=== PATIENT | female | born 1960 | race Caucasian/White ===

== ENCOUNTER 2016-03-31 11:59 | Emergency (ER) | payer MEDICARE ==
[2014-05-03 02:58] VITALS: BMI 31.0
[~2016-03-31 11:59] MED LIST: AMBIEN10 MG PO; AMITRIPTYLINE100 MG PO; ATIVAN1 MG PO; DUTOPROL 25-121 EACH PO; EFFEXOR XR150 MG PO; FOLIC ACID1 MG PO; HYDROCODONE-APA1 TAB PO; IPRAT-ALBUT 0.5-3 ML UPD; KLOR-CON M2020 MEQ PO; LEVAQUIN 5500 MG/100 PO; NYSTATIN ORAL SU5 ML PO; PRILOSEC20 MG PO; PROMETHAZINE W473 M1 PO; SOMA350 MG PO; VITAMIN D31000 UNI2 PO
[2016-03-31 14:42] LABS: HEMATOCRIT 48.2 % (36.0-48.0); HEMOGLOBIN 16.3 g/dL (12-16); MCH 30.1 pg (26.0-34.0); MCHC 33.8 g/dL (31.0-37.0); MCV 89.1 fL (80.0-100.0); MEAN PLATELET VOLUME 9.6 fL (7.4-10.4); PLATELET COUNT 344 10x3/uL (130-400); RBC 5.41 10x6/uL (4.00-5.40)
[2016-03-31 15:11] LABS: ANION GAP 15.8 mmol/L (8-16); BILIRUBIN - TOTAL 0.35 mg/dL (0.2-1.3); CREATININE - SERUM 0.9 mg/dL (0.6-1.3); POTASSIUM - SERUM 3.8 mmol/L (3.5-5.1); PROTEIN - SERUM 7.8 g/dL (6.4-8.2)
[2016-03-31 15:28] LABS: EOSINOPHILS 5 % (0-7); LYMPHOCYTES 29 % (15-50); NEUTROPHILS 66 % (40-80); PLATELET ESTIMATE NORMAL
[2016-03-31 20:31] LABS: BASOPHILS 0.3 % (0.0-2.0); EOSINOPHILS 2.8 % (0-7); HEMATOCRIT 44.8 % (36.0-48.0); HEMOGLOBIN 15.4 g/dL (12-16); LYMPHOCYTES 33.8 % (15-50); MCH 30.3 pg (26.0-34.0); MCHC 34.4 g/dL (31.0-37.0); MCV 88.2 fL (80.0-100.0); NEUTROPHILS 56.1 % (40-80); PLATELET COUNT 327 10x3/uL (130-400); RBC 5.08 10x6/uL (4.00-5.40); WBC 17.3 10x3/uL (4.8-10.8)
== END 2016-03-31 21:26 | disposition home or self-care (01) ==
LOC: D.ER 11:59
PROVIDERS: Emergency Medicine
DX: R11.10 Vomiting, unspecified (principal); R19.7 Diarrhea, unspecified; R16.0 Hepatomegaly, not elsewhere classified; K76.0 Fatty (change of) liver, not elsewhere classified; M54.5 Low back pain; I10 Essential (primary) hypertension; E87.6 Hypokalemia; G47.00 Insomnia, unspecified; M54.16 Radiculopathy, lumbar region; F17.200 Nicotine dependence, unspecified, uncomplicated

== ENCOUNTER 2016-05-13 20:04 | Emergency (ER) | payer MEDICARE ==
[2014-05-03 02:58] VITALS: BMI 31.0
[2016-05-13 21:30] LABS: BASOPHILS 0.6 % (0.0-2.0); EOSINOPHILS 2.6 % (0-7); HEMATOCRIT 43.9 % (36.0-48.0); HEMOGLOBIN 14.7 g/dL (12-16); IMMATURE GRANULOCYTES 0.6 % (0-5); LYMPHOCYTES 42.9 % (15-50); MCH 30.1 pg (26.0-34.0); MCHC 33.5 g/dL (31.0-37.0); MEAN PLATELET VOLUME 9.6 fL (7.4-10.4); MONOCYTES 6.8 % (2-11); NEUTROPHILS 46.5 % (40-80); PLATELET COUNT 295 10x3/uL (130-400); RBC 4.88 10x6/uL (4.00-5.40); RDW 13.3 % (11.5-14.5); WBC 13.3 10x3/uL (4.8-10.8)
[2016-05-13 21:52] LABS: ALBUMIN 3.9 g/dL (3.4-5.0); ANION GAP 15.7 mmol/L (8-16); BILIRUBIN - TOTAL 0.16 mg/dL (0.2-1.3); CALCIUM 8.9 mg/dL (8.5-10.1); CREATININE - SERUM 0.9 mg/dL (0.6-1.3); POTASSIUM - SERUM 3.7 mmol/L (3.5-5.1); PROTEIN - SERUM 7.4 g/dL (6.4-8.2)
[2016-05-14 00:12] LABS: APPEARANCE CLEAR (CLEAR); BILIRUBIN NEGATIVE (NEGATIVE); COLOR YELLOW (YELLOW); GLUCOSE NEGATIVE (NEGATIVE); KETONE NEGATIVE (NEGATIVE); LEUKOCYTE ESTERASE TRACE (NEGATIVE); NITRITE NEGATIVE (NEGATIVE); PROTEIN NEGATIVE (NEGATIVE); SPECIFIC GRAVITY 1.015 (1.005-1.020); UROBILINOGEN NORMAL (NORMAL)
[2016-05-14 00:23] LABS: BACTERIA MANY /hpf (NONE SEEN); EPITHELIAL CELLS 0-5 /hpf (0-5); RED CELLS - URINE 0-5 /hpf (0-5); WHITE CELLS - URINE 0-5 /hpf (0-5)
== END 2016-05-14 00:12 | disposition home or self-care (01) ==
LOC: D.ER 20:04
PROVIDERS: Emergency Medicine
DX: R10.9 Unspecified abdominal pain (principal); R16.0 Hepatomegaly, not elsewhere classified; F17.200 Nicotine dependence, unspecified, uncomplicated; I10 Essential (primary) hypertension; G47.00 Insomnia, unspecified; M54.16 Radiculopathy, lumbar region

== ENCOUNTER → 2016-05-20 11:07 | Outpatient (CLI) | payer MEDICARE ==
[2014-05-03 02:58] VITALS: BMI 31.0
[2016-05-21 08:21] LABS: HEPATITIS C ANTIBODY <0.1 (0.0-0.9)
== END | disposition home or self-care (01) ==
LOC: D.RAD 05-14 09:30
PROVIDERS: Family Medicine
DX: R10.9 Unspecified abdominal pain (principal); K76.0 Fatty (change of) liver, not elsewhere classified

== ENCOUNTER → 2016-06-15 10:59 | Outpatient (CLI) | payer MEDICARE ==
[2014-05-03 02:58] VITALS: BMI 31.0
== END | disposition home or self-care (01) ==
LOC: D.LAB 08:00
PROVIDERS: Family Medicine
DX: E11.9 Type 2 diabetes mellitus without complications (principal)

== ENCOUNTER 2016-08-04 11:06 | Emergency (ER) | payer MEDICARE ==
[2014-05-03 02:58] VITALS: BMI 31.0
[2016-08-04 12:02] LABS: BASOPHILS 0.6 % (0-2); EOSINOPHILS 0.5 % (0-7); HEMATOCRIT 43.5 % (36.0-48.0); HEMOGLOBIN 14.4 g/dL (12-16); IMMATURE GRANULOCYTES 0.5 % (0-5); LYMPHOCYTES 42.1 % (15-50); MCH 30.3 pg (26.0-34.0); MCHC 33.1 g/dL (31.0-37.0); MCV 91.6 fL (80.0-100.0); MEAN PLATELET VOLUME 9.5 fL (7.4-10.4); MONOCYTES 6.9 % (2-11); NEUTROPHILS 49.4 % (40-80); PLATELET COUNT 317 10x3/uL (130-400); RBC 4.75 10x6/uL (4.00-5.40); WBC 9.9 10x3/uL (4.8-10.8)
[2016-08-04 12:15] LABS: APPEARANCE CLEAR (CLEAR); BILIRUBIN NEGATIVE (NEGATIVE); COLOR YELLOW (YELLOW); GLUCOSE NEGATIVE (NEGATIVE); KETONE NEGATIVE (NEGATIVE); LEUKOCYTE ESTERASE NEGATIVE (NEGATIVE); NITRITE NEGATIVE (NEGATIVE); PROTEIN NEGATIVE (NEGATIVE); UROBILINOGEN NORMAL (NORMAL)
[2016-08-04 12:18] LABS: ALBUMIN 3.6 g/dL (3.4-5.0); ALKALINE PHOSPHATASE 116 U/L (46-116); ALT (SGPT) 30 U/L (10-68); BILIRUBIN - TOTAL 0.27 mg/dL (0.2-1.3); CALC OSMOLALITY 279 mosm/kg (275-300); CHLORIDE - SERUM 101 mmol/L (98-107); CREATININE - SERUM 0.8 mg/dL (0.6-1.3); GLUCOSE 156 mg/dL (74-106); POTASSIUM - SERUM 4.2 mmol/L (3.5-5.1); PROTEIN - SERUM 7.6 g/dL (6.4-8.2); SODIUM 139 mmol/L (136-145); UREA NITROGEN 10 mg/dL (7-18); eGFR NON AFRICAN AMERICAN 79 mL/min (90-120)
== END 2016-08-04 16:02 | disposition home or self-care (01) ==
LOC: D.ER 11:06
PROVIDERS: Emergency Medicine
DX: R51 Headache (principal); S00.03XA Contusion of scalp, initial encounter; W18.09XA Striking against other object with subsequent fall, initial encounter; Y93.89 Activity, other specified; Y92.89 Other specified places as the place of occurrence of the external cause; S89.91XA Unspecified injury of right lower leg, initial encounter; I10 Essential (primary) hypertension; G47.00 Insomnia, unspecified; F17.200 Nicotine dependence, unspecified, uncomplicated

== ENCOUNTER → 2016-12-23 10:29 | Outpatient (CLI) | payer MEDICARE ==
[2014-05-03 02:58] VITALS: BMI 31.0
== END | disposition home or self-care (01) ==
LOC: D.RAD 10:29
DX: R05 Cough (principal); R09.1 Pleurisy

== ENCOUNTER 2017-04-21 20:01 | Emergency (ER) | payer MEDICARE ==
[2014-05-03 02:58] VITALS: BMI 31.0
== END 2017-04-21 22:23 | disposition home or self-care (01) ==
LOC: D.ER 20:01
DX: S09.90XA Unspecified injury of head, initial encounter (principal); W19.XXXA Unspecified fall, initial encounter; Y93.89 Activity, other specified; Y92.019 Unspecified place in single-family (private) house as the place of occurrence of the external cause

== ENCOUNTER 2017-06-15 12:26 | Emergency (ER) | payer MEDICARE ==
[2014-05-03 02:58] VITALS: BMI 31.0
[2017-06-15 13:31] LABS: APPEARANCE HAZY (CLEAR); BILIRUBIN NEGATIVE (NEGATIVE); COLOR YELLOW (YELLOW); GLUCOSE NEGATIVE (NEGATIVE); KETONE NEGATIVE (NEGATIVE); NITRITE NEGATIVE (NEGATIVE); PROTEIN NEGATIVE (NEGATIVE); UROBILINOGEN NORMAL (NORMAL)
[2017-06-15 13:34] LABS: BACTERIA MODERATE /hpf (NONE SEEN); MUCUS >1+ /lpf (NONE SEEN); RED CELLS - URINE 0-5 /hpf (0-5); WHITE CELLS - URINE 0-5 /hpf (0-5)
[2017-06-15 13:45] LABS: BASOPHILS 0.5 % (0-2); EOSINOPHILS 1.2 % (0-7); HEMATOCRIT 41.7 % (36.0-48.0); HEMOGLOBIN 14.2 g/dL (12-16); IMMATURE GRANULOCYTES 0.3 % (0-5); MCH 30.4 pg (26.0-34.0); MCHC 34.1 g/dL (31.0-37.0); MCV 89.3 fL (80.0-100.0); MEAN PLATELET VOLUME 9.9 fL (7.4-10.4); MONOCYTES 5.9 % (2-11); NEUTROPHILS 58.1 % (40-80); PLATELET COUNT 281 10x3/uL (130-400); RBC 4.67 10x6/uL (4.00-5.40); WBC 15.3 10x3/uL (4.8-10.8)
[2017-06-15 14:03] LABS: ALBUMIN 3.6 g/dL (3.4-5.0); ALKALINE PHOSPHATASE 129 U/L (46-116); ALT (SGPT) 31 U/L (10-68); BILIRUBIN - TOTAL 0.35 mg/dL (0.2-1.3); CALC OSMOLALITY 280 mosm/kg (275-300); CALCIUM 8.7 mg/dL (8.5-10.1); CARBON DIOXIDE 29.1 mmol/L (21.0-32.0); CHLORIDE - SERUM 99 mmol/L (98-107); CREATININE - SERUM 0.8 mg/dL (0.6-1.3); GLUCOSE 208 mg/dL (74-106); PROTEIN - SERUM 7.7 g/dL (6.4-8.2); SODIUM 138 mmol/L (136-145); UREA NITROGEN 10 mg/dL (7-18); eGFR NON AFRICAN AMERICAN 79 mL/min (90-120)
== END 2017-06-15 15:58 | disposition home or self-care (01) ==
LOC: D.ER 12:26
PROVIDERS: Family Medicine
DX: J20.9 Acute bronchitis, unspecified (principal); N39.0 Urinary tract infection, site not specified

== ENCOUNTER 2017-07-08 11:00 | Emergency (ER) | payer MEDICARE ==
[2014-05-03 02:58] VITALS: BMI 31.0
[2017-07-08 11:40] LABS: BASOPHILS 0.6 % (0-2); EOSINOPHILS 2.8 % (0-7); HEMATOCRIT 39.7 % (36.0-48.0); HEMOGLOBIN 13.6 g/dL (12-16); IMMATURE GRANULOCYTES 0.4 % (0-5); LYMPHOCYTES 44.6 % (15-50); MCH 30.6 pg (26.0-34.0); MCHC 34.3 g/dL (31.0-37.0); MCV 89.2 fL (80.0-100.0); NEUTROPHILS 45.6 % (40-80); PLATELET COUNT 255 10x3/uL (130-400); RBC 4.45 10x6/uL (4.00-5.40); RDW 13.2 % (11.5-14.5); WBC 8.1 10x3/uL (4.8-10.8)
[2017-07-08 11:56] LABS: ALBUMIN 3.3 g/dL (3.4-5.0); ANION GAP 14.6 mmol/L (8-16); BILIRUBIN - TOTAL 0.19 mg/dL (0.2-1.3); CALCIUM 8.5 mg/dL (8.5-10.1); CARBON DIOXIDE 25.2 mmol/L (21.0-32.0); CREATININE - SERUM 0.9 mg/dL (0.6-1.3); POTASSIUM - SERUM 3.8 mmol/L (3.5-5.1); PROTEIN - SERUM 7.1 g/dL (6.4-8.2)
[2017-07-08 16:37] LABS: APPEARANCE CLEAR (CLEAR); BILIRUBIN NEGATIVE (NEGATIVE); COLOR YELLOW (YELLOW); GLUCOSE 1000 mg/dL (NEGATIVE); KETONE NEGATIVE (NEGATIVE); NITRITE NEGATIVE (NEGATIVE); PROTEIN NEGATIVE (NEGATIVE); UROBILINOGEN NORMAL (NORMAL)
[2017-07-08 16:40] LABS: BACTERIA MODERATE /hpf (NONE SEEN); RED CELLS - URINE RARE /hpf (0-5)
== END 2017-07-08 17:08 | disposition home or self-care (01) ==
LOC: D.ER 11:00
PROVIDERS: Emergency Medicine; Nurse Practitioner Family
DX: J44.1 Chronic obstructive pulmonary disease with (acute) exacerbation (principal)

== ENCOUNTER 2017-12-27 16:21 | Emergency (ER) | payer MEDICARE, MEDICAID ==
[~2017-12-27] VITALS: Ht 165.1 cm; Wt 78.2 kg
[2017-12-27 16:24] VITALS: Ht 165.1 cm; Wt 78.2 kg
[2017-12-27] MEDS ORDERED: LIPITOR10 MG (16:26)
[2017-12-27] MEDS ORDERED: ATIVAN1 MG PO (16:27)
[2017-12-27] MEDS ORDERED: GLUCOPHAGE500 MG PO (16:28)
[2017-12-27] MEDS ORDERED: BENADRYL25 MG PO (16:29)
[2017-12-27] MEDS ORDERED: IBUPROFEN800 MG PO (17:27)
[2017-12-27] MEDS ORDERED: POLYSPORIN OINT15 G1 TOPICAL (17:27)
[2017-12-27] MEDS ORDERED: KEFLEX500 MG PO (17:27)
[2017-12-27 18:19] VITALS: BP 131/74
== END 2017-12-27 18:08 | disposition home or self-care (01) ==
LOC: D.ER 16:21
DX: T23.171A Burn of first degree of right wrist, initial encounter (principal); X10.2XXA Contact with fats and cooking oils, initial encounter; Y93.G3 Activity, cooking and baking; Y92.010 Kitchen of single-family (private) house as the place of occurrence of the external cause; I10 Essential (primary) hypertension; K21.9 Gastro-esophageal reflux disease without esophagitis; F17.200 Nicotine dependence, unspecified, uncomplicated

== ENCOUNTER 2018-09-06 19:00 | Outpatient (CLI) | payer MEDICARE, MEDICAID ==
[2017-12-27 16:24] VITALS: BMI 28.6
[~2018-09-06 19:00] MED LIST changes: +BENADRYL25 MG PO; +GLUCOPHAGE500 MG PO; +IBUPROFEN800 MG PO; +KEFLEX500 MG PO; +LIPITOR10 MG; +POLYSPORIN OINT15 G1 TOPICAL
== END 2018-09-06 23:59 | disposition home or self-care (01) ==
LOC: D.MAMMO 19:00
PROVIDERS: ATTEND Family Medicine
DX: Z12.31 Encounter for screening mammogram for malignant neoplasm of breast (principal)

== ENCOUNTER → 2019-02-01 13:57 | Outpatient (CLI) | payer MEDICARE, MEDICAID ==
[2017-12-27 16:24] VITALS: BMI 28.6
[2019-02-01 15:12] LABS: APPEARANCE CLEAR (CLEAR); BILIRUBIN NEGATIVE (NEGATIVE); COLOR YELLOW (YELLOW); GLUCOSE 50 mg/dL (NEGATIVE); KETONE NEGATIVE (NEGATIVE); NITRITE NEGATIVE (NEGATIVE); PROTEIN NEGATIVE (NEGATIVE); UROBILINOGEN NORMAL (NORMAL)
[2019-02-01 15:13] LABS: BASOPHILS 0.5 % (0-2); EOSINOPHILS 2.1 % (0-7); HEMATOCRIT 43.7 % (36.0-48.0); HEMOGLOBIN 14.7 g/dL (12-16); IMMATURE GRANULOCYTES 0.3 % (0-5); MCH 30.7 pg (26.0-34.0); MCHC 33.6 g/dL (31.0-37.0); MCV 91.2 fL (80.0-100.0); MEAN PLATELET VOLUME 10.1 fL (7.4-10.4); MONOCYTES 6.6 % (2-11); NEUTROPHILS 50.5 % (40-80); RBC 4.79 10x6/uL (4.00-5.40); RDW 12.9 % (11.5-14.5); WBC 11.4 10x3/uL (4.8-10.8)
[2019-02-01 15:18] LABS: PLATELET COUNT 310 10x3/uL (130-400)
[2019-02-01 15:46] LABS: ALBUMIN 3.8 g/dL (3.4-5.0); ALKALINE PHOSPHATASE 131 U/L (46-116); ALT (SGPT) 31 U/L (10-68); BILIRUBIN - TOTAL 0.33 mg/dL (0.2-1.3); CALC OSMOLALITY 277 mosm/kg (275-300); CALCIUM 8.5 mg/dL (8.5-10.1); CARBON DIOXIDE 32.2 mmol/L (21.0-32.0); CHLORIDE - SERUM 101 mmol/L (98-107); CHOL - HDL RATIO 4.4 ratio (2.3-4.1); CHOLESTEROL, TOTAL 166 mg/dL (0-200); CREATININE - SERUM 0.7 mg/dL (0.6-1.3); HDL CHOLESTEROL 38 mg/dL (32-96); LDL CHOLESTEROL 60 mg/dL (0-100); LDL-HDL RATIO 1.6 ratio (1.5-3.5); POTASSIUM - SERUM 3.3 mmol/L (3.5-5.1); PROTEIN - SERUM 7.7 g/dL (6.4-8.2); SODIUM 139 mmol/L (136-145); THYROID STIMULATING HORMONE 2.19 uIU/mL (0.36-3.74); TRIGLYCERIDE 343 mg/dL (30-200); UREA NITROGEN 9 mg/dL (7-18); eGFR NON AFRICAN AMERICAN > 90 mL/min (90-120)
[2019-02-01 15:47] LABS: GLUCOSE 117 mg/dL (74-106)
[2019-02-02 08:11] LABS: HEPATITIS C ANTIBODY <0.1 S/CO RAT (0.0-0.9)
[2019-02-02 12:10] LABS: CREATININE - URINE 83.2 mg/dL (Not Estab.); MICROALB/CREAT RATIO 11.5 (0.0-30.0); MICROALBUMIN - URINE 9.6 ug/mL (Not Estab.)
== END | disposition home or self-care (01) ==
LOC: D.LAB 13:57
PROVIDERS: ATTEND Family Medicine
DX: M54.5 Low back pain (principal); I10 Essential (primary) hypertension; F34.1 Dysthymic disorder; E11.9 Type 2 diabetes mellitus without complications; Z00.01 Encounter for general adult medical examination with abnormal findings

== ENCOUNTER → 2019-08-25 12:58 | Outpatient (CLI) | payer MEDICARE, MEDICAID ==
[2017-12-27 16:24] VITALS: BMI 28.6
== END | disposition home or self-care (01) ==
LOC: D.RAD 12:58
PROVIDERS: ATTEND Family Medicine
DX: M54.5 Low back pain (principal)